=== PATIENT | female | born 1960 | race Caucasian/White ===

== ENCOUNTER 2022-09-01 09:51 | Outpatient (CLI) | payer OTHER | END 2022-09-01 10:06 | disposition home or self-care (01) | LOC: RAD 09:51 | PROVIDERS: ATTEND Physical Medicine & Rehabilitation | DX: M25.562 Pain in left knee (principal); M25.561 Pain in right knee ==

== ENCOUNTER 2023-07-06 10:01 | Outpatient (CLI) | payer OTHER | END 2023-07-06 10:15 | disposition home or self-care (01) | LOC: MAMO-SONO 10:01 | PROVIDERS: ATTEND Internal Medicine | DX: I10 Essential (primary) hypertension (principal); E03.9 Hypothyroidism, unspecified; E78.9 Disorder of lipoprotein metabolism, unspecified; E55.9 Vitamin D deficiency, unspecified; E11.51 Type 2 diabetes mellitus with diabetic peripheral angiopathy without gangrene; E11.9 Type 2 diabetes mellitus without complications; K64.8 Other hemorrhoids; K62.5 Hemorrhage of anus and rectum; Z13.820 Encounter for screening for osteoporosis; Z12.11 Encounter for screening for malignant neoplasm of colon; Z12.31 Encounter for screening mammogram for malignant neoplasm of breast ==

== ENCOUNTER → 2023-07-13 13:37 | Outpatient (CLI) | payer OTHER | END | disposition home or self-care (01) | LOC: NUCLEAR 13:37 | PROVIDERS: ATTEND Internal Medicine | DX: Z13.820 Encounter for screening for osteoporosis (principal) ==

== ENCOUNTER 2024-09-06 09:56 | Outpatient (CLI) | payer OTHER | END 2024-09-06 10:08 | disposition home or self-care (01) | LOC: MAMO-SONO 09:56 | PROVIDERS: ATTEND Internal Medicine | DX: N64.0 Fissure and fistula of nipple (principal); N64.4 Mastodynia; N60.09 Solitary cyst of unspecified breast; I10 Essential (primary) hypertension; E03.9 Hypothyroidism, unspecified; E78.9 Disorder of lipoprotein metabolism, unspecified; E55.9 Vitamin D deficiency, unspecified; E11.51 Type 2 diabetes mellitus with diabetic peripheral angiopathy without gangrene; R41.3 Other amnesia; Z13.820 Encounter for screening for osteoporosis; Z12.11 Encounter for screening for malignant neoplasm of colon; Z12.31 Encounter for screening mammogram for malignant neoplasm of breast ==